=== PATIENT | male | born 1965 | race Caucasian/White ===

== ENCOUNTER 2017-02-03 10:23 | Emergency (ER) | payer OTHER ==
[~2017-02-03 10:23] MED LIST: ACID CONTROL20 MG PO; ANDRODERM TD; BACTRIM DS TAB1 EAC2 PO; BACTRIM DS1 TA1 PO; BUDEPRION XL150 MG PO; CELEBREX100 MG PO; CRANBERRY300 M1 PO; CRANBERRY500 M PO; GABAPENTIN600 M1 PO; LYRICA75 MG PO; MACROBID100 MG/CA1 PO; MICRO-K 1010 MEQ PO; NEURONTIN300 MG PO; SERTRALINE HCL50 M1 PO; TAB A VITE1 EAC1 PO; TOVIAZ4 MG PO; TRAZODONE HCL100 MG PO; TYLENOL325 M1 PO; VITAMIN C PO; VITAMIN D31000 UNIT PO; ZINC SULFATE220 MG PO; ZOLOFT50 M1 PO
[2017-02-03 11:00] LABS: URINE BILIRUBIN NEGATIVE (NEG); URINE BLOOD LARGE (NEG); URINE GLUCOSE (UA) NEGATIVE (NEG); URINE KETONE NEGATIVE (NEG); URINE LEUKOCYTE ESTERASE POSITIVE (NEG); URINE NITRITE NEGATIVE (NEG); URINE PROTEIN SMALL (NEG); URINE SPECIFIC GRAVITY 1.005 (1.003-1.030)
[2017-02-03 11:26] LABS: URINE APPEARANCE HAZY; URINE COLOR STRAW
[2017-02-03 11:28] LABS: URINE BACTERIA 1+
[2017-02-03 11:29] LABS: URINE WBC 75-100 /[HPF] (0-5)
[2017-02-03 11:30] LABS: URINE EPITHELIAL CELLS 0-1 /[HPF] (0-10)
== END 2017-02-03 11:32 ==
LOC: EDMED 10:23
PROVIDERS: Emergency Medicine
DX: T83.098A Other mechanical complication of other urinary catheter, initial encounter (principal); Z98.890 Other specified postprocedural states; F17.200 Nicotine dependence, unspecified, uncomplicated